=== PATIENT | female | born 1990 | race Caucasian/White ===

== ENCOUNTER 2019-04-19 23:11 | Emergency (ER) | payer BC, OTHER ==
[~2019-04-19] VITALS: Ht 162.6 cm; Wt 70.3 kg
[2019-04-19] MEDS ORDERED: ONDANSETRON 4 MG/2 ML (SDV) Z0FRAN ONE (23:50)
[2019-04-19] MEDS ORDERED: NS IV 1000 ML 1,000 ML IV STA (23:56)
[2019-04-20] LABS: BASOPHILS % (AUTO) 0 % (0-10); EOSINOPHILS % (AUTO) 0 % (0-10); HEMATOCRIT 36 % (35-52); HEMOGLOBIN 12.5 G/DL (11.5-16.0); LYMPHOCYTES # (AUTO) 2.1 X 10^3 (1.0-4.0); LYMPHOCYTES % (AUTO) 20 % (12-44); MEAN CORPUSCULAR HEMOGLOBIN 30 PG (25-34); MEAN CORPUSCULAR HGB CONC 35 G/DL (32-36); MEAN CORPUSCULAR VOLUME 86 FL (80-99); MEAN PLATELET VOLUME 8.8 FL (7.4-10.4); MONOCYTES % (AUTO) 9 % (0-12); NEUTROPHILS # (AUTO) 7.4 X 10^3 (1.8-7.8); NEUTROPHILS % (AUTO) 70 % (42-75); PLATELET COUNT 281 10^3/uL (130-400); RED CELL DISTRIBUTION WIDTH 12.4 % (10.0-14.5); WHITE BLOOD COUNT 10.5 10^3/uL (4.3-11.0)
[2019-04-20] MEDS ORDERED: ONDANSETRON 4 MG/2 ML (SDV) Z0FRAN IVP ONE
[2019-04-20 00:16] LABS: ALANINE AMINOTRANSFERASE 11 U/L (0-55); ALBUMIN 4.1 GM/DL (3.2-4.5); ALKALINE PHOSPHATASE 47 U/L (40-136); BILIRUBIN,TOTAL 0.3 MG/DL (0.1-1.0); BUN/CREATININE RATIO 14; CALCIUM 9.4 MG/DL (8.5-10.1); CARBON DIOXIDE 17 MMOL/L (21-32); CHLORIDE 104 MMOL/L (98-107); CREATININE SERUM 0.76 MG/DL (0.60-1.30); GFR ESTIMATED > 60; GLUCOSE 108 MG/DL (70-105); POTASSIUM 3.3 MMOL/L (3.6-5.0); SODIUM 135 MMOL/L (135-145); TOTAL PROTEIN 7.3 GM/DL (6.4-8.2)
[2019-04-20] MEDS ORDERED: fentaNYL INJECTION 100 MCG/2 ML AMP IVP STA ×2 (00:18→01:18)
--- NOTE | 2019-04-20 00:45 | ED Abdominal Pain ---
General Chief Complaint: BEEF [employer] Stated Complaint: 12 WKS PREG,CRAMPING Nursing Triage Note: PT AMB TO RM 9 WITH COMPLAINT OF ABD/VAGINAL CRAMPING AND LOW BACK PAIN. STATES CRAMPING STARTED FRIDAY MORNING WENT AWAY AND RETURNED TODAY. Sepsis Screen: No Definite Risk Source of Information: Patient Exam Limitations: No Limitations History of Present Illness Date Seen by Provider: Apr 19, 2019 Time Seen by Provider: 23:53 Initial Comments Here with complaint of right flank pain and cramping. Started 2 days ago and has been intermittent since. Went away earlier today but came back significantly tonight. She cannot find a comfortable position. She is 12 weeks . Does have nausea but no vomiting. Denies dysuria, vaginal discharge or bleeding. Timing/Duration: 2-3 Days, Changing Over Time, Intermittent Severity/Quality: Moderate, Severe, Aching Location: Flank (right) Radiation: Groin Activities at Onset: None Modifying Factors: Improves With Other (now exacerbating or relieving factors) Associated Symptoms: No Chest Pain, No Fever/Chills; Nausea/Vomiting; No Swelling/Mass in Abdomen, No Weakness Allergies and Home Medications Allergies Coded Allergies: Sulfa (Sulfonamide Antibiotics) (Verified Allergy, Unknown, 04/19/19) codeine (Verified Allergy, Unknown, 04/19/19) "SENSITIVITY" Home Medications Cephalexin 500 Mg Tablet, 500 MG PO BID Prescribed by: VICTOIRNA JERONIMO on 04/20/19158 Hydrocodone Bit/Acetaminophen 1 Tab Tab, 1 EACH PO Q6H PRN for PAIN-MODERATE Prescribed by: VICTORINA JERONIMO on 04/20/19158 Patient Home Medication List Home Medication List Reviewed: Yes Review of Systems Review of Systems Constitutional: no symptoms reported EENTM: No Symptoms Reported Respiratory: Denies Cough, Denies Shortness of Air Cardiovascular: Denies Chest Pain, Denies Lightheadedness Gastrointestinal: Denies Diarrhea; Nausea; Denies Vomiting Genitourinary: Denies Burning, Denies Discharge; Flank Pain; Denies Hematuria Musculoskeletal: no symptoms reported Skin: no symptoms reported All Other Systems Reviewed Negative Unless Noted: Yes Past Dhuasjn-Rwpmai-Ocrbei Hx Past Med/Social Hx: Reviewed Nursing Past Med/Soc Hx Patient Social History Alcohol Use: Denies Use Recreational Drug Use: No Smoking Status: Never a Smoker Recent Foreign Travel: No Contact w/Someone Who Travel: No Recent Infectious Disease Expo: No Recent Hopitalizations: No Physical Abuse: No Sexual Abuse: No Mistreated: No Fear: No Immunizations Up To Date Tetanus Booster (TDap): Unknown PED Vaccines UTD: Yes Seasonal Allergies Seasonal Allergies: No Past Medical History Surgeries: Yes Section Respiratory: No Cardiac: No Neurological: No Hx : 2 Hx Para: 1 Hx Total # of Abortions (Sp): 0 Genitourinary: No Gastrointestinal: No Musculoskeletal: No Endocrine: No HEENT: No Cancer: No Psychosocial: No Integumentary: No Blood Disorders: No Family Medical History Reviewed Nursing Family Hx No Pertinent Family Hx Physical Exam Vital Signs Vital Signs - First Documented 04/19/19 23:41 Temp 99.6 Pulse 75 Resp 16 B/P (MAP) 136/80 (98) Pulse Ox 100 O2 Delivery Room Air Capillary Refill : Less Than 3 Seconds Height/Weight/BMI Height: 5'4.00" Weight: 155lbs. oz. 70.748091py; BMI Method:Stated General Appearance: WD/WN, no apparent distress HEENT: PERRL/EOMI Neck: full range of motion, supple Respiratory: lungs clear, normal breath sounds Cardiovascular: regular rate, rhythm, no murmur Gastrointestinal: non tender, soft Extremities: non-tender, normal inspection Back: normal inspection, no CVA tenderness, no vertebral tenderness Neurologic/Psychiatric: alert, oriented x 3 Skin: normal color, warm/dry Progress/Results/Core Measures Results/Orders Lab Results Laboratory Tests Test 04/19/19 01:05 04/19/19 23:48 Range/Units Urine Color YELLOW Urine Clarity CLEAR Urine pH 6.5 5-9 Urine Specific [place] 1.020 1.016-1.022 Urine Protein 2+ H NEGATIVE Urine Glucose (UA) NEGATIVE NEGATIVE Urine Ketones 4+ H NEGATIVE Urine Nitrite NEGATIVE NEGATIVE Urine Bilirubin NEGATIVE NEGATIVE Urine Urobilinogen NORMAL NORMAL MG/DL Urine Leukocyte Esterase 2+ H NEGATIVE Urine RBC (Auto) 4+ H NEGATIVE Urine RBC 25-50 H /HPF Urine WBC 5-10 H /HPF Urine Squamous Epithelial Cells 10-25 H /HPF Urine Crystals NONE /LPF Urine Bacteria LARGE H /HPF Urine Casts NONE /LPF Urine Mucus MODERATE H /LPF Urine Culture Indicated YES White Blood Count 10.5 4.3-11.0 10^3/uL Red Blood Count 4.15 L 4.35-5.85 10^6/uL Hemoglobin 12.5 11.5-16.0 G/DL Hematocrit 36 35-52 % Mean Corpuscular Volume 86 80-99 FL Mean Corpuscular Hemoglobin 30 25-34 PG Mean Corpuscular Hemoglobin Concent 35 32-36 G/DL Red Cell Distribution Width 12.4 10.0-14.5 % Platelet Count 281 130-400 10^3/uL Mean Platelet Volume 8.8 7.4-10.4 FL Neutrophils (%) (Auto) 70 42-75 % Lymphocytes (%) (Auto) 20 12-44 % Monocytes (%) (Auto) 9 0-12 % Eosinophils (%) (Auto) 0 0-10 % Basophils (%) (Auto) 0 0-10 % Neutrophils # (Auto) 7.4 1.8-7.8 X 10^3 Lymphocytes # (Auto) 2.1 1.0-4.0 X 10^3 Monocytes # (Auto) 1.0 0.0-1.0 X 10^3 Eosinophils # (Auto) 0.0 0.0-0.3 10^3/uL Basophils # (Auto) 0.0 0.0-0.1 10^3/uL Sodium Level 135 135-145 MMOL/L Potassium Level 3.3 L 3.6-5.0 MMOL/L Chloride Level 104 98-107 MMOL/L Carbon Dioxide Level 17 L 21-32 MMOL/L Anion Gap 14 5-14 MMOL/L Blood Urea Nitrogen 11 7-18 MG/DL Creatinine 0.76 0.60-1.30 MG/DL Estimat Glomerular Filtration Rate > 60 BUN/Creatinine Ratio 14 Glucose Level 108 H 70-105 MG/DL Calcium Level 9.4 8.5-10.1 MG/DL Corrected Calcium 9.3 8.5-10.1 MG/DL Total Bilirubin 0.3 0.1-1.0 MG/DL Aspartate Amino Transf (AST/SGOT) 8 5-34 U/L Alanine Aminotransferase (ALT/SGPT) 11 0-55 U/L Alkaline Phosphatase 47 40-136 U/L Total Protein 7.3 6.4-8.2 GM/DL Albumin 4.1 3.2-4.5 GM/DL My Orders Orders - VICTORINA JERONIMO MD Ua Culture If Indicated (04/19/19 23:47) Ondansetron Injection (Zofran Injectio (04/20/19 00:00) Ns Iv 1000 Ml (Sodium Chloride 0.9%) (04/19/19 23:56) Ed Iv/Invasive Line Start (04/19/19 23:56) Cbc With Automated Diff (04/19/19 23:56) Comprehensive Metabolic Panel (04/19/19 23:56) Ondansetron Injection (Zofran Injectio (04/19/19 23:50) Fentanyl Injection (Sublimaze Injection (04/20/19 00:18) Fentanyl Injection (Sublimaze Injection (04/20/19 01:18) Urine Culture (04/19/19 01:05) Ed Iv/Invasive Line Start (04/20/19 01:26) D5 Ns 1000 Ml Iv Solution (Dextrose 5%/0 (04/20/19 01:26) Hydrocodone/Apap 5/325 Tablet (Lortab 5 (04/20/19 02:00) Ceftriaxone For Iv Use (Rocephin For I (04/20/19 02:00) Medications Given in ED Current Medications Medications Dose Ordered Sig/Doroteo Route Start Time Stop Time Status Last Admin Dose Admin Acetaminophen/ Hydrocodone Bitart 1 tab ONCE ONCE PO 04/20/19 02:00 04/20/19 02:01 DC 04/20/19 02:20 1 TAB Ceftriaxone Sodium 1000 mg/ Sterile Water 10 ml @ 200 mls/hr ONCE ONCE IV 04/20/19 02:00 04/20/19 02:02 DC 04/20/19 02:20 200 MLS/HR Dextrose/Sodium Chloride 1,000 ml @ 0 mls/hr Q0M ONCE IV 04/20/19 01:26 04/20/19 01:27 DC 04/20/19 01:38 0 MLS/HR Ondansetron HCl 4 mg ONCE ONCE IVP 04/20/19 00:00 04/20/19 00:01 DC 04/19/19 23:59 4 MG Vital Signs/I&O 04/19/19 23:41 Temp 99.6 Pulse 75 Resp 16 B/P (MAP) 136/80 (98) Pulse Ox 100 O2 Delivery Room Air Blood Pressure Mean: 98 Progress Progress Note : Progress Note Seen and evaluated. IV, labs, UA, normal saline 1 L bolus, Zofran 4 mg IV ordere d. Due to pain in , fentanyl 50 g IV ordered. Monitor patient. Repeat fentanyl ordered due to persistent pain. 0150: UA notes possible urinary tract infection plus moderate amount of red cells concerning for possible kidney stone. Bedside ultrasound shows positive movement with heart rate approximately 150 and 12-2/7 by femur length. We will go ahead and give dose of Rocephin given her nausea. I will give her a dose of hydrocodone 5/325 one tab by mouth now for possible kidney stone. Complicated treatment given her . Monitor patient. 030: Better. Discharged home with return precautions. Patient verbalize understanding instructions and agreement with plan. I did order outpatient ultrasound of abdomen, renal and OB. Departure Impression Primary Impression: Urinary tract infection Qualified Codes: N30.01 - Acute cystitis with hematuria Additional Impression: Ureteral obstruction, right Disposition: HOME, SELF-CARE Condition: Stable Departure-Patient Inst. Decision time for Depature: 02:02 Referrals: JHONNY TORRES MD (PCP/Family) Primary Care Physician Patient Instructions: Acute Abdomen (Belly Pain), Adult (DC), Kidney Stones (DC), Urinary Tract Infection, Adult (DC) Add. Discharge Instructions: All discharge instructions reviewed with patient and/or family. Voiced understanding. I suspect to have a kidney stone. You should strain your urine each time he reported and monitor to see a stone has passed. Return in the morning for ultrasound. You need to follow-up with your OB doctor this week for recheck and further evaluation and to discuss results of the ultrasound. You may take the pain meds as directed. You may additionally take 1 extra strength Tylenol/acetaminophen (500 mg) with each dose of pain medicine. If you do not take the pain medicine he may substitute an additional Tylenol/acetaminophen extra strength (500 mg). Do not exceed 4000 mg of Tylenol/acetaminophen and 24 hours. The pain med that you were prescribed also has acetaminophen in it. Return for worse pain, fever, vomiting, weakness, breathing problems or other concerns as needed. Scripts Hydrocodone Bit/Acetaminophen (Hydrocodone/Acetaminophen 5/325mg Tablet) 1 Tab Tab 1 EACH PO Q6H PRN for PAIN-MODERATE MDD 10 for 3 Days, #12 TAB Prov: VICTORINA JERONIMO MD 04/20/19 Cephalexin (Cephalexin) 500 Mg Tablet 500 MG PO BID, #10 TAB 0 Refills Prov: VICTORINA JERONIMO MD 04/20/19 VICTORINA JERONIMO MD Apr 20, 2019 00:45
[2019-04-20 01:15] LABS: BILIRUBIN,URINE NEGATIVE (NEGATIVE); CLARITY,URINE CLEAR; COLOR,URINE YELLOW; GLUCOSE, URINE (UA) NEGATIVE (NEGATIVE); KETONES,URINE 4+ (NEGATIVE); LEUKOCYTE ESTERASE ,URINE 2+ (NEGATIVE); NITRITE,URINE NEGATIVE (NEGATIVE); PH,URINE 6.5 (5-9); PROTEIN,URINE 2+ (NEGATIVE); UROBILINOGEN,URINE NORMAL (NORMAL)
[2019-04-20 01:24] LABS: RBC,URINE 25-50 /HPF
[2019-04-20 01:25] LABS: BACTERIA,URINE LARGE /HPF
[2019-04-20] MEDS ORDERED: D5 NS 1000 ML IV SOLUTION 1,000 ML IV ONE (01:26)
--- NOTE | 2019-04-20 01:50 | NUR ---
Provider preformed bedside ultrasound with report of FHT 150, positive movement, and fetus measuring 12 and 2/7.
[2019-04-20] MEDS ORDERED: CEPH500T PO (01:59)
[2019-04-20] MEDS ORDERED: ACHD5005 PO (01:59)
[2019-04-20] MEDS ORDERED: HYDROcodone/APAP 5 MG/325 MG (LORTAB) TAB PO ONE (02:00)
[2019-04-20] MEDS ORDERED: cefTRIAXone FOR IV USE 1,000 MG in WATER (STERILE) FOR INJECTION 10 ML IV ONE (02:00)
[2019-04-20 03:11] VITALS: BP 127/78
--- NOTE | 2019-04-20 03:11 | NUR ---
Outpatient "o" set for abdominal survey, OB/, and renal/kidney ultrasound sent with pt.
== END 2019-04-20 03:12 | disposition home or self-care (01) ==
LOC: ER 23:14
DX: O23.41 Unspecified infection of urinary tract in pregnancy, first trimester (principal); O99.89 Other specified diseases and conditions complicating pregnancy, childbirth and the puerperium; N13.5 Crossing vessel and stricture of ureter without hydronephrosis; Z88.2 Allergy status to sulfonamides; Z88.5 Allergy status to narcotic agent; Z98.890 Other specified postprocedural states; Z3A.12 12 weeks gestation of pregnancy
CPT/HCPCS: 36415; 80053; 81000; 85025; 87088